=== PATIENT | male | born 1985 | race Caucasian/White ===

== ENCOUNTER 2019-11-01 03:38 | Emergency (ER) | payer OTHER ==
--- NOTE | 2019-11-01 03:53 | PDOC ---
History of Present Illness - General Chief Complaint: Eye Problem Stated Complaint: L EYE IRRITATION Time Seen by Provider: 11/01/19 03:52 History Source: Patient - History of Present Illness Initial Comments: 33-year-old male with history of LASIK eye surgery 2 years ago complaining of left eye pain with irritation for the last 2 days. Patient reports left eye pain worse. Denies vision changes or loss.Patient reports that he has used Vigamox with no significant improvement in pain Past History - Medical History Allergies/Adverse Reactions: Allergies Allergy/AdvReac Type Severity Reaction Status Date / Time No Known Allergies Allergy Verified 11/01/19 04:16 Home Medications: Ambulatory Orders Erythromycin 0.5% Eye Ointment [Erythromycin 0.5% Eye Ointment -] 1 applic OS QID #1 tube 11/01/19 Review of Systems - Review of Systems Able to Perform ROS?: Yes HEENTM: Yes: Eye Pain *Physical Exam - Vital Signs 11/01/19 04:40 Last Vital Signs Temp Pulse Resp BP Pulse Ox 98.5 F 73 16 113/76 99 11/01/19 04:13 11/01/19 04:13 11/01/19 04:13 11/01/19 04:13 11/01/19 04:13 - Physical Exam General Appearance: Yes: Appropriately Dressed HEENT: positive: Other (Left sclera proximal to the inner canthus with positive fluorescein intake. Snellen 20/30 left eye 20/25 right eye. PERRLA) Medical Decision Making - Medical Decision Making 11/01/19 05:23 A: corneal abrasion P: erythromycin fluroxcien tetracaine outpatient ophthalmology follow up Discharge - Discharge Information Problems reviewed: Yes Clinical Impression/Diagnosis: Left corneal abrasion Qualifiers: Encounter type: initial encounter Qualified Code(s): S05.02XA - Injury of conjunctiva and corneal abrasion without foreign body, left eye, initial encounter Disposition: HOME - Additional Discharge Information Prescriptions: Erythromycin 0.5% Eye Ointment [Erythromycin 0.5% Eye Ointment -] 1 applic OS QID #1 tube - Follow up/Referral Referrals: Nicolle Keyes DO [Primary Care Provider] - Asif King MD [Staff Physician] - Call tomorrow - Patient Discharge Instructions Patient Printed Discharge Instructions: Corneal Abrasion Additional Instructions: Apply a thin ribbon of erythromycin to left eye 4 times daily. It is important that you follow-up with an eye doctor tomorrow or as soon as possible Return to the emergency room for any worsening symptoms - Post Discharge Activity
[2019-11-01] MEDS ORDERED: TETRACAINE 0.5% OPHTH SOLN 2 ML BOTTLE ONE ×2 (04:13→04:47)
[2019-11-01 04:16] VITALS: BP 113/76; PULSE 73; TEMP 98.5; BMI 17.2
[2019-11-01] MEDS ORDERED: FLUORESCEIN NA 1 EA STRIP OD ONE (04:30)
[2019-11-01] MEDS ORDERED: ERYTHROMYCIN 0.5% OPHTHALMIC OINTMENT 3.5 GM TUBE OD ONE (04:30)
[2019-11-01] MEDS ORDERED: TETRACAINE 0.5% HCL 0.6ML DROPPER.BOTTLE OD ONE (04:30)
[2019-11-01] MEDS ORDERED: ERYTHROMYCIN 0.5% OPHTHALMIC OINTMENT 3.5 GM TUBE ONE (04:47)
== END 2019-11-01 05:00 | disposition home or self-care (01) ==
LOC: JER 03:38
DX: S05.02XA Injury of conjunctiva and corneal abrasion without foreign body, left eye, initial encounter (principal)
CPT/HCPCS: 99283-25